=== PATIENT | female | born 1995 | race African-American/Black ===

== ENCOUNTER 2016-12-30 04:06 | Inpatient (IN) ==
[2016-12-30 05:26] LABS: Basophils # 0.1 10*3/uL (0.0-0.2); Basophils % 0.4 % (0.0-0.8); Eosinophils # 0.5 10*3/uL (0.0-0.87); Eosinophils % 4.8 % (0.00-10.9); Hemoglobin 11.2 GM/DL (12.0-16.0); Immature Granulocytes % 0.4 %; Immature Granulocytes Absolute 0.04 #; Lymphocytes # 1.7 10*3/uL (1.4-4.0); Lymphocytes % 15.4 % (21.3-54.2); Mean Corpuscular HGB Conc 28.6 GM/DL (32-36); Mean Corpuscular Hemoglobin 22 PG (27-34); Mean Corpuscular Volume 75.1 FL (87-102); Monocytes # 0.8 10*3/uL (0.11-0.8); Monocytes % 6.7 % (1.7-12.7); Neutrophils # 8.1 10*3/uL (1.4-7.4); Neutrophils % 72.3 % (38.7-73.9); Platelet Count 333 T/CUMM (130-400); Red Blood Count 5.22 MC/CUMM (3.8-5.5); Red Cell Distribution Width 15.9 % (9.3-17.3); White Blood Count 11.3 T/CUMM (4-12)
[2016-12-30 05:46] LABS: Alanine Aminotransferase 17 U/L (13-56); Albumin 3.3 G/DL (3.4-5.0); Alkaline Phosphatase 73 U/L (45-117); Aspartate Amino Transferase 18 U/L (0-37); Bilirubin,Total < 0.39 MG/DL (0.2-1.0); Blood Urea Nitrogen 11 MG/DL (7-18); Calcium 8.7 MG/DL (8.5-10.1); Glucose 91 MG/DL (74-106); Potassium 4.1 MMOL/L (3.5-5.1); Sodium 143 MMOL/L (136-145); Total Protein 7.1 G/DL (6.4-8.3)
[2016-12-30 06:08] LABS: Hematocrit 39.2 VOL% (35.7-47.0)
[2016-12-30 06:09] LABS: Hypochromasia 1+; Platelet Estimate Adequate
[2016-12-30 06:11] LABS: Giant Platelets Few
[2016-12-30] MEDS ORDERED: ALBUTEROL 2.5 MG/3 ML NEB RESP TX PRN (11:00)
[2016-12-30] MEDS: ENOXAPARIN 40 MG/0.4 ML SYRINGE SUBCUT SCH (11:21)
[2016-12-30] MEDS ORDERED: PNEUMOCOCCAL VACCINE (13 VALENT) 0.5 ML SYRINGE IM ONE (14:44)
[2016-12-30] MEDS ORDERED: INFLUENZA VIRUS VACCINE 0.5 ML SYRINGE IM ONE (14:47)
[2016-12-30] MEDS: GABAPENTIN 600 MG TABLET PO SCH ×2 (15:37→21:09)
[2016-12-30] MEDS: traZODone 50 MG TABLET PO SCH (21:08)
[2016-12-30] MEDS: levETIRAcetam 500 MG TABLET PO SCH (21:09)
[2016-12-30] MEDS: TOPIRAMATE 200 MG TABLET PO SCH (21:09)
[2016-12-30] MEDS: lamoTRIgine 25 MG TABLET PO SCH (21:09)
[2016-12-30] MEDS: ALPRAZolam 0.5 MG TABLET PO SCH (21:09)
[2016-12-31] MEDS: PROMETHAZINE 25 MG TABLET PO PRN (08:55)
[2016-12-31] MEDS: GABAPENTIN 600 MG TABLET PO SCH ×3 (10:22→21:31)
[2016-12-31] MEDS: FLUoxetine 20 MG CAPSULE PO SCH (10:24)
[2016-12-31] MEDS: VERAPAMIL 80 MG TABLET PO SCH (10:25)
[2016-12-31] MEDS: PANTOPRAZOLE 40 MG TABLET PO SCH (10:25)
[2016-12-31] MEDS: lamoTRIgine 25 MG TABLET PO SCH ×2 (10:26→21:33)
[2016-12-31] MEDS: levETIRAcetam 500 MG TABLET PO SCH ×2 (10:26→21:33)
[2016-12-31] MEDS: TOPIRAMATE 200 MG TABLET PO SCH ×2 (10:27→21:33)
[2016-12-31] MEDS: ALPRAZolam 0.5 MG TABLET PO SCH ×2 (10:28→21:33)
[2016-12-31] MEDS: ENOXAPARIN 40 MG/0.4 ML SYRINGE SUBCUT SCH (17:05)
[2016-12-31] MEDS: traZODone 50 MG TABLET PO SCH (21:32)
[2017-01-01] MEDS: TOPIRAMATE 200 MG TABLET PO SCH ×2 (09:00→20:36)
[2017-01-01] MEDS: GABAPENTIN 600 MG TABLET PO SCH ×3 (09:00→20:37)
[2017-01-01] MEDS: ALPRAZolam 0.5 MG TABLET PO SCH ×2 (09:01→20:37)
[2017-01-01] MEDS: lamoTRIgine 25 MG TABLET PO SCH ×2 (09:01→20:37)
[2017-01-01] MEDS: FLUoxetine 20 MG CAPSULE PO SCH (09:01)
[2017-01-01] MEDS: VERAPAMIL 80 MG TABLET PO SCH (09:01)
[2017-01-01] MEDS: PANTOPRAZOLE 40 MG TABLET PO SCH (09:02)
[2017-01-01] MEDS: ENOXAPARIN 40 MG/0.4 ML SYRINGE SUBCUT SCH (09:02)
[2017-01-01] MEDS: levETIRAcetam 500 MG TABLET PO SCH ×2 (09:02→20:37)
[2017-01-01] MEDS ORDERED: CAPSAICIN 0.025% CREAM 60 GM TUBE TOP PRN (11:31)
[2017-01-01] MEDS: traZODone 50 MG TABLET PO SCH (20:37)
[2017-01-02] MEDS: PROMETHAZINE 25 MG TABLET PO PRN (07:48)
[2017-01-02] MEDS: FLUoxetine 20 MG CAPSULE PO SCH (09:11)
[2017-01-02] MEDS: ENOXAPARIN 40 MG/0.4 ML SYRINGE SUBCUT SCH (09:12)
[2017-01-02] MEDS: VERAPAMIL 80 MG TABLET PO SCH (09:14)
[2017-01-02] MEDS: levETIRAcetam 500 MG TABLET PO SCH ×2 (09:14→21:08)
[2017-01-02] MEDS: ALPRAZolam 0.5 MG TABLET PO SCH ×2 (09:14→21:07)
[2017-01-02] MEDS: GABAPENTIN 600 MG TABLET PO SCH ×3 (09:15→21:07)
[2017-01-02] MEDS: lamoTRIgine 25 MG TABLET PO SCH ×2 (09:15→21:07)
[2017-01-02] MEDS: PANTOPRAZOLE 40 MG TABLET PO SCH (09:15)
[2017-01-02] MEDS: TOPIRAMATE 200 MG TABLET PO SCH ×2 (09:15→21:08)
[2017-01-02] MEDS: ACETAMINOPHEN 325 MG TABLET PO PRN (21:08)
[2017-01-02] MEDS: traZODone 50 MG TABLET PO SCH (21:09)
[2017-01-03] MEDS: ACETAMINOPHEN 325 MG TABLET PO PRN ×3 (06:32→18:45)
[2017-01-03] MEDS: VERAPAMIL 80 MG TABLET PO SCH (09:59)
[2017-01-03] MEDS: levETIRAcetam 500 MG TABLET PO SCH ×2 (10:00→20:28)
[2017-01-03] MEDS: lamoTRIgine 25 MG TABLET PO SCH ×2 (10:00→20:28)
[2017-01-03] MEDS: GABAPENTIN 600 MG TABLET PO SCH ×3 (10:00→20:27)
[2017-01-03] MEDS: TOPIRAMATE 200 MG TABLET PO SCH ×2 (10:01→20:28)
[2017-01-03] MEDS: PANTOPRAZOLE 40 MG TABLET PO SCH (10:01)
[2017-01-03] MEDS: FLUoxetine 20 MG CAPSULE PO SCH (10:01)
[2017-01-03] MEDS: ENOXAPARIN 40 MG/0.4 ML SYRINGE SUBCUT SCH (10:02)
[2017-01-03] MEDS: ALPRAZolam 0.5 MG TABLET PO SCH ×2 (10:02→20:27)
[2017-01-03] MEDS: traZODone 50 MG TABLET PO SCH (20:28)
[2017-01-04] MEDS: ACETAMINOPHEN 325 MG TABLET PO PRN ×3 (01:28→18:23)
[2017-01-04] MEDS: FLUoxetine 20 MG CAPSULE PO SCH (09:47)
[2017-01-04] MEDS: VERAPAMIL 80 MG TABLET PO SCH (09:48)
[2017-01-04] MEDS: PANTOPRAZOLE 40 MG TABLET PO SCH (09:49)
[2017-01-04] MEDS: lamoTRIgine 25 MG TABLET PO SCH ×2 (09:49→21:03)
[2017-01-04] MEDS: ALPRAZolam 0.5 MG TABLET PO SCH ×2 (09:50→21:04)
[2017-01-04] MEDS: GABAPENTIN 600 MG TABLET PO SCH ×3 (09:51→21:01)
[2017-01-04] MEDS: levETIRAcetam 500 MG TABLET PO SCH ×2 (09:52→21:03)
[2017-01-04] MEDS: TOPIRAMATE 200 MG TABLET PO SCH ×2 (09:53→21:01)
[2017-01-04] MEDS: ENOXAPARIN 40 MG/0.4 ML SYRINGE SUBCUT SCH (09:54)
[2017-01-04] MEDS: traZODone 50 MG TABLET PO SCH (21:03)
[2017-01-05] MEDS: ACETAMINOPHEN 325 MG TABLET PO PRN ×2 (05:43→22:45)
[2017-01-05] MEDS: ALPRAZolam 0.5 MG TABLET PO SCH ×2 (12:18→21:21)
[2017-01-05] MEDS: levETIRAcetam 500 MG TABLET PO SCH ×2 (12:19→21:22)
[2017-01-05] MEDS: FLUoxetine 20 MG CAPSULE PO SCH (12:19)
[2017-01-05] MEDS: lamoTRIgine 25 MG TABLET PO SCH ×2 (12:20→21:21)
[2017-01-05] MEDS: PANTOPRAZOLE 40 MG TABLET PO SCH (12:20)
[2017-01-05] MEDS: VERAPAMIL 80 MG TABLET PO SCH (12:21)
[2017-01-05] MEDS: TOPIRAMATE 200 MG TABLET PO SCH ×2 (12:21→21:22)
[2017-01-05] MEDS: GABAPENTIN 600 MG TABLET PO SCH ×3 (12:23→21:20)
[2017-01-05] MEDS: ENOXAPARIN 40 MG/0.4 ML SYRINGE SUBCUT SCH (12:24)
[2017-01-05] MEDS: CAPSAICIN 0.025% CREAM 60 GM TUBE TOP SCH ×2 (16:40→21:22)
[2017-01-05] MEDS: traZODone 50 MG TABLET PO SCH (21:22)
[2017-01-06] MEDS: VERAPAMIL 80 MG TABLET PO SCH (09:11)
[2017-01-06] MEDS: GABAPENTIN 600 MG TABLET PO SCH ×3 (09:12→21:15)
[2017-01-06] MEDS: lamoTRIgine 25 MG TABLET PO SCH ×2 (09:12→21:15)
[2017-01-06] MEDS: levETIRAcetam 500 MG TABLET PO SCH ×2 (09:12→21:15)
[2017-01-06] MEDS: ALPRAZolam 0.5 MG TABLET PO SCH ×2 (09:13→21:14)
[2017-01-06] MEDS: PANTOPRAZOLE 40 MG TABLET PO SCH (09:13)
[2017-01-06] MEDS: TOPIRAMATE 200 MG TABLET PO SCH ×2 (09:13→21:14)
[2017-01-06] MEDS: ENOXAPARIN 40 MG/0.4 ML SYRINGE SUBCUT SCH (09:13)
[2017-01-06] MEDS: FLUoxetine 20 MG CAPSULE PO SCH (09:13)
[2017-01-06] MEDS: CAPSAICIN 0.025% CREAM 60 GM TUBE TOP SCH ×3 (09:14→21:18)
[2017-01-06] MEDS ORDERED: TUBERCULIN SKIN TEST 0.1 ML SYRINGE INTRADERM ONE (09:51)
[2017-01-06] MEDS: traZODone 50 MG TABLET PO SCH (21:15)
[2017-01-07] MEDS: ACETAMINOPHEN 325 MG TABLET PO PRN ×2 (06:34→20:24)
[2017-01-07] MEDS: VERAPAMIL 80 MG TABLET PO SCH (09:59)
[2017-01-07] MEDS: lamoTRIgine 25 MG TABLET PO SCH ×2 (10:00→20:24)
[2017-01-07] MEDS: levETIRAcetam 500 MG TABLET PO SCH ×2 (10:00→20:24)
[2017-01-07] MEDS: GABAPENTIN 600 MG TABLET PO SCH ×3 (10:00→20:24)
[2017-01-07] MEDS: FLUoxetine 20 MG CAPSULE PO SCH (10:01)
[2017-01-07] MEDS: ALPRAZolam 0.5 MG TABLET PO SCH (10:01)
[2017-01-07] MEDS: PANTOPRAZOLE 40 MG TABLET PO SCH (10:01)
[2017-01-07] MEDS: TOPIRAMATE 200 MG TABLET PO SCH ×2 (10:01→20:24)
[2017-01-07] MEDS: ENOXAPARIN 40 MG/0.4 ML SYRINGE SUBCUT SCH (10:02)
[2017-01-07] MEDS: CAPSAICIN 0.025% CREAM 60 GM TUBE TOP SCH ×3 (10:02→20:29)
[2017-01-07] MEDS: traZODone 50 MG TABLET PO SCH (20:24)
[2017-01-08] MEDS: GABAPENTIN 600 MG TABLET PO SCH ×2 (10:08→16:21)
[2017-01-08] MEDS: lamoTRIgine 25 MG TABLET PO SCH (10:10)
[2017-01-08] MEDS: FLUoxetine 20 MG CAPSULE PO SCH (10:12)
[2017-01-08] MEDS: VERAPAMIL 80 MG TABLET PO SCH (10:14)
[2017-01-08] MEDS: PANTOPRAZOLE 40 MG TABLET PO SCH (10:15)
[2017-01-08] MEDS: TOPIRAMATE 200 MG TABLET PO SCH (10:15)
[2017-01-08] MEDS: levETIRAcetam 500 MG TABLET PO SCH (10:16)
[2017-01-08] MEDS: CAPSAICIN 0.025% CREAM 60 GM TUBE TOP SCH ×2 (10:17→14:35)
[2017-01-08] MEDS: ENOXAPARIN 40 MG/0.4 ML SYRINGE SUBCUT SCH (10:19)
[2017-01-08] MEDS: ACETAMINOPHEN 325 MG TABLET PO PRN ×2 (10:56→17:35)
[2017-01-08] MEDS ORDERED: PNEUMOCOCCAL VACCINE (13 VALENT) 0.5 ML SYRINGE IM ONE (16:00)
[2017-01-08] MEDS ORDERED: INFLUENZA VIRUS VACCINE 0.5 ML SYRINGE IM ONE (16:00)
[2017-01-08 16:04] VITALS: BP 124/70
== END 2017-01-08 17:45 | disposition swing bed (61) | DRG 100 ==
LOC: EDUNIT# → EDBD → N.ED 04:06 → N.EDINP 08:22 → SUATTDRO 08:22 → N.EDINP 09:40 → N.4E 09:59
PROVIDERS: ADMIT Internal Medicine Geriatric Medicine; ATTEND Internal Medicine